=== PATIENT | female | born 1980 | race Caucasian/White ===

== ENCOUNTER 2016-05-31 13:08 | Emergency (ER) | payer SELFPAY ==
[~2016-05-31 13:08] MED LIST: NORCO 325 MG-51 TA1 PO
[2016-05-31] MEDS ORDERED: NORCO 325 MG-51 TA1 PO (14:32)
== END 2016-05-31 14:40 | disposition home or self-care (01) ==
LOC: ED 13:08
DX: S06.0X9A Concussion with loss of consciousness of unspecified duration, initial encounter (principal); M25.512 Pain in left shoulder; T14.8 Other injury of unspecified body region; V43.32XA Unspecified car occupant injured in collision with other type car in nontraffic accident, initial encounter

== ENCOUNTER 2016-12-04 18:33 | Emergency (ER) | payer SELFPAY ==
[~2016-12-04] VITALS: Ht 167.6 cm; Wt 70.5 kg
[2016-12-04] MEDS ORDERED: CLINDAMYCIN 300MG PO (19:26)
[2016-12-04] MEDS ORDERED: PERCOCET 325 MG1 TA2 PO (19:27)
[2016-12-04 19:48] VITALS: BP 120/75
== END 2016-12-04 19:48 | disposition home or self-care (01) ==
LOC: ED 18:33
DX: K05.219 Aggressive periodontitis, localized, unspecified severity (principal); F17.210 Nicotine dependence, cigarettes, uncomplicated; K08.89 Other specified disorders of teeth and supporting structures; K03.81 Cracked tooth

== ENCOUNTER 2018-02-25 00:19 | Emergency (ER) | payer MEDICAID ==
[~2018-02-25] VITALS: Ht 167.6 cm; Wt 62.7 kg
[~2018-02-25 00:19] MED LIST changes: +CLINDAMYCIN 300MG PO; +PERCOCET 325 MG1 TA2 PO
[2018-02-25 00:30] VITALS: BP 114/62
[2018-02-25] MEDS ORDERED: IBU800 M1 PO (00:37)
== END 2018-02-25 01:22 | disposition home or self-care (01) ==
LOC: ED 00:19
DX: J06.9 Acute upper respiratory infection, unspecified (principal); F17.210 Nicotine dependence, cigarettes, uncomplicated

== ENCOUNTER → 2018-08-14 | Outpatient (CLI) | payer MEDICAID ==
[~2018-08-14] MED LIST changes: +IBU800 M1 PO
[2018-08-14 14:13] LABS: BASO # 0.1 (0.02-0.10); EOS # 0.1 (0.04-0.40); EOS % 1.2 % (1.0-5.0); HEMATOCRIT 41.7 % (37.0-47.0); HEMOGLOBIN 13.9 g/dL (12.5-16.0); LYMPH# 2.2 (1.50-4.00); MEAN CELL VOLUME 93 fl (78-100); MEAN CORPUSCULAR HEMOGLOBIN 31 pg (27-31); MEAN CORPUSCULAR HGB CONC 33 g/dL (33-37); MEAN PLATELET VOLUME 8.8 fl (7.4-10.4); MONO # 0.7 (0.20-0.80); NEU # 7.6 (1.40-6.50); PLATELET COUNT 365 K/mm3 (130-400); RED BLOOD COUNT 4.48 M/mm3 (4.10-5.30); RED CELL DISTRIBUTION WIDTH 12.9 % (11.5-14.5); WHITE BLOOD COUNT 10.8 K/mm3 (4.8-10.8)
[2018-08-14 14:29] LABS: ALBUMIN 3.9 g/dL (3.5-5.0); CALCIUM 9.5 mg/dL (8.4-10.2); POTASSIUM 4.4 mmol/L (3.5-5.1); TOTAL BILIRUBIN 0.3 mg/dL (0.2-1.2); TOTAL PROTEIN 7.1 g/dL (6.4-8.3)
== END ==
LOC: LAB 13:41
PROVIDERS: Physician Assistant
DX: E16.2 Hypoglycemia, unspecified (principal); R53.83 Other fatigue; Z91.89 Other specified personal risk factors, not elsewhere classified